=== PATIENT | female | born 1950 | race Caucasian/White ===

== ENCOUNTER → 2016-12-01 | Day surgery (SDC) | payer OTHER ==
--- NOTE | 2016-12-02 16:58 | PATH ---
Surgical Pathology Report Patient Name: BELEM DICKERSON [facility]. Rec. #: [id number] /Age/Gender: 1950 (Age: 65) / F Account: [id number] Location: Taken: 12/01/2016 Received: 12/01/2016 Reported: 12/02/2016 Physicians: Mercedez Sarbaia M.D. Specimen(s) Received RIGHT BREAST BIOPSY 11 O'CLOCK RETROAREOLAR Clinical History Ultrasound findings: Probably benign Final Diagnosis BREAST, RIGHT, 11:00 RETROAREOLAR, CORE BIOPSY: BENIGN BREAST TISSUE SHOWING ECTATIC DUCTS, STROMAL FIBROSIS AND EXTRAVASATED INSPISSATED MATERIAL, CONSISTENT WITH CYST CONTENTS. Electronically Signed Nichole Ruggiero M.D. Gross Description Received in formalin labeled "right breast 11:00 retroareolar," is a 1.7 x 1.4 x 0.2 cm aggregate of multiple hinojosa-yellow, irregular to cylindrical portions of fibroadipose tissue admixed with blood clot. The formalin is filtered and the specimen is entirely submitted in one cassette. Time to formalin fixation: 2 minutes Total formalin fixation time: Approximately 6 hours. /12/01/201612/01/2016
== END | disposition home or self-care (01) ==
LOC: FRADUS-SUR 10:43
PROVIDERS: ATTEND Internal Medicine Hematology & Oncology
PROC: 0HBT3ZX Excision of Right Breast, Percutaneous Approach, Diagnostic (ICD-10-PCS; principal; 2016-12-01)
DX: N60.31 Fibrosclerosis of right breast (principal); N63 Unspecified lump in breast
CPT/HCPCS: 19083; 87899; 88305-TC; A4648; G0206-TC